=== PATIENT | female | born 1980 | race Caucasian/White ===

== ENCOUNTER 2019-01-19 06:47 | Day surgery (SDC) | payer OTHER ==
[~2019-01-19 06:47] MED LIST: Buffered Lidocaine 1% SYRIN* 1 ML/SYRINGE INTRADERM ONE; Dexamethasone IV* 4 MG/ML 1 ML (4 MG) IV SLOW PU ONE; Famotidine IV* 10 MG/ML 2 ML (20 mg) IV ONE; Lactated Ringers 1000 ML Bag* 1,000 ML IV SCH
[2019-01-19] MEDS ORDERED: Bupivacaine 0.25% SDV* 30 ML ONE (07:20)
[2019-01-19] MEDS ORDERED: Naloxone* 0.4 MG/ML 1 ML VIAL IV PRN (07:25)
[2019-01-19] MEDS ORDERED: HYDROcodone/ACETAMIN 5-325 MG* 1 TAB PO PRN (07:25)
[2019-01-19] MEDS ORDERED: DiMENhydriNATE IV* 50 MG/ML VIAL IV PUSH PRN (07:25)
[2019-01-19] MEDS ORDERED: oxyCODONE/Acetamin 5/325 MG* TAB PO PRN (07:25)
[2019-01-19] MEDS ORDERED: fentaNYL* 50 MCG/ML 2 ML VIAL (100 MCG VIAL) IV PRN (07:25)
[2019-01-19] MEDS ORDERED: Ketorolac INJ* 30 MG/ML 1 ML VIAL IV PRN (07:25)
[2019-01-19] MEDS ORDERED: Dexamethasone IV* 4 MG/ML 1 ML (4 MG) ONE (07:29)
[2019-01-19] MEDS ORDERED: Famotidine IV* 10 MG/ML 2 ML (20 mg) ONE (07:29)
[2019-01-19] MEDS ORDERED: Propofol* 10 MG/ML 20 ML BTL ONE (08:25)
[2019-01-19] MEDS ORDERED: Lidocaine 2% PF * 5 ML VIAL ONE (08:25)
[2019-01-19] MEDS ORDERED: fentaNYL* 50 MCG/ML 2 ML VIAL (100 MCG VIAL) ONE (08:25)
[2019-01-19] MEDS ORDERED: Midazolam* 1 MG/ML 2 ML VIAL (2 MG) ONE (08:25)
[2019-01-19] MEDS ORDERED: Ondansetron INJ* 2 MG/ML VIAL ONE (09:01)
[2019-01-19] MEDS ORDERED: Ketorolac INJ* 30 MG/ML 1 ML VIAL ONE (10:23)
[2019-01-19 11:01] VITALS: BP 114/69
--- NOTE | 2019-01-19 19:58 | OP ---
DATE OF OPERATION: 01/19/19 - [facility] DATE OF : 82 SURGEON: Rizwan Stone MD SEWING MACHINE BOBBIN WINDER: REDD Talbert ANESTHESIOLOGIST: Dr. Acuna. ANESTHESIA: General. PRE-OP DIAGNOSES: 1. Right carpal tunnel syndrome. 2. Right De Quervain's tendonitis. POST-OP DIAGNOSES: 1. Right carpal tunnel syndrome. 2. Right De Quervain's tendonitis. OPERATIVE PROCEDURE: 1. Right endoscopic carpal tunnel release. 2. Right De Quervain's release. INDICATIONS: Ms. Palencia has pretty significant De Quervain's and carpal tunnel syndrome. We had talked about treatment options, she had wanted to proceed with surgery. ESTIMATED BLOOD LOSS: 2 mL. COMPLICATIONS: None. FINDINGS: See above and below. DESCRIPTION OF PROCEDURE: Slime was seen in the preoperative holding area. The correct site, side, and procedure were identified. We came back to the operating room, the arm was prepped and draped in the usual fashion and a time- out was performed. The arm was exsanguinated with the Esmarch and the tourniquet was inflated to 225 mmHg. I went ahead and made a 1 cm incision just ulnar to the palmaris longus tendon and just proximal to the wrist flexion crease. The distal antebrachial fascia was split bluntly with the tenotomy scissors. The 2-prong skin hook was placed underneath the fascia. The synovial stripper, the dilators, and the Q-tip were used to dilate and curette and dry out the carpal tunnel. The microendoscopic system was used to release the transverse carpal ligament on its ulnar aspect from distal to proximal. The distal antebrachial fascia was released proximally with the tenotomy scissors. Once I had confirmed the release, everything was looking good. The wound was irrigated out and the skin was closed with 4-0 Prolene suture and Steri-Strips. I then made a 2-cm transverse incision just proximal to the radial styloid. Dissection was carried down and full-thickness flaps were bluntly raised off the tendon sheath. The Ragnell retractors were placed. The 15 blade was used to release the sheath. Just off the dorsal aspect, there was a large accessory compartment that was released first and then the septum was excised to release the adjacent compartment. Once I had fully released the tendons proximally and distally and the septum was excised, I did strip off some tenosynovitis as well. The wound was irrigated out, skin was closed with 4-0 Monocryl suture and Steri- Strip. 0.25% Marcaine was infiltrated. Soft dressing was applied and she was taken to the recovery room in stable condition. [id number]/[facility] #: [id number] RON
== END 2019-01-19 11:16 | disposition home or self-care (01) ==
LOC: OREAST 06:47
PROVIDERS: ATTEND Orthopaedic Surgery Hand Surgery
DX: G56.01 Carpal tunnel syndrome, right upper limb (principal); M65.4 Radial styloid tenosynovitis [de Quervain]; Z87.891 Personal history of nicotine dependence; F31.89 Other bipolar disorder; F42.9 Obsessive-compulsive disorder, unspecified
CPT/HCPCS: 81025; J1100; J1885; J2250; J2405; J2704; J3010; J3490

== ENCOUNTER 2020-05-09 16:00 | Inpatient (IN) ==
[2020-05-09] MEDS ORDERED: Buffered Lidocaine 1% SYRIN 1 ml INTRADERM ONE (16:34)
[2020-05-09] MEDS ORDERED: Penicillin G Potassium IV 5,000,000 UNITS in NS 0.9% 100 ml BAG 100 ML IVPB ONE (16:34)
[2020-05-09] MEDS ORDERED: Lactated Ringers 1000 ml BAG 1,000 ML IV ONE ×2 (16:34→23:50)
[2020-05-09] MEDS ORDERED: Promethazine INJ(RESTRICTED) 25 MG/ML 1 ml VIAL IV ONE (16:34)
[2020-05-09] MEDS ORDERED: Morphine 10 MG/ML VIAL (1 ml) IM ONE (16:38)
[2020-05-09] MEDS ORDERED: Promethazine INJ(RESTRICTED) 25 MG/ML 1 ml VIAL IM ONE (16:40)
[2020-05-09] MEDS ORDERED: Lactated Ringers 1000 ml BAG 1,000 ML IV SCH ×2 (17:00→23:45)
[2020-05-09 17:41] LABS: Urine Benzodiazepine Screen None Detected (None Detect); Urine Cannabinoids Screen None Detected (None Detect); Urine Opiates Screen None Detected (None Detect)
[2020-05-09 22:26] LABS: ABS Basophils 0.1 10^3/ul (0-0.2); ABS Eosinophils 0.1 10^3/ul (0-0.6); ABS Lymphocytes 1.8 10^3/ul (1.0-4.8); ABS Monocytes 0.8 10^3/ul (0-0.8); ABS Neutrophils 8.8 10^3/ul (1.5-7.7); Hematocrit 36 % (35-47); Hemoglobin 12.3 g/dL (12.0-16.0); Lymphocyte % 15.9 %; Mean Corpuscular HGB Conc 34 g/dL (31-36); Mean Corpuscular Hemoglobin 32 pg (27-31); Mean Corpuscular Volume 93 fL (80-97); Platelet Count 228 10^3/uL (150-450); Red Blood Count 3.88 10^6 /uL (3.70-4.87); Red Cell Distribution Width 14 % (10-15); White Blood Count 11.6 10^3/uL (3.5-10.8)
[2020-05-09] MEDS ORDERED: OBEPIDURAL 250 ML EPIDURAL ONE (22:59)
[2020-05-09] MEDS ORDERED: Oxytocin in LR 20 UNITS/1,000 ML BAG IVPB ONE (23:07)
[2020-05-09] MEDS ORDERED: OBEPIDURAL 250 ML EPIDURAL SCH (23:45)
[2020-05-09] MEDS ORDERED: Phenylephrine 40 mcg/mL 10mL (400mcg) SYRINGE IV PUSH PRN (23:50)
[2020-05-09] MEDS ORDERED: Sodium Citrate/Citric Acid LIQ 15 ML UDC PO PRN (23:50)
[2020-05-09] MEDS: Phenylephrine 40 mcg/mL 10mL (400mcg) SYRINGE IV PUSH PRN (23:58)
[2020-05-10] MEDS: Phenylephrine 40 mcg/mL 10mL (400mcg) SYRINGE IV PUSH PRN (00:02)
[2020-05-10] MEDS ORDERED: Dibucaine 1% OINT 28.35 GM TUBE PR PRN (02:01)
[2020-05-10] MEDS ORDERED: Witch Hazel PAD JAR TOPICAL PRN (02:01)
[2020-05-10] MEDS ORDERED: Oxytocin in LR 20 UNITS/1,000 ML BAG IVPB SCH (03:00)
[2020-05-10] MEDS ORDERED: Penicillin G Potassium IV 3,000,000 UNITS in NS 0.9% 100 ml BAG 100 ML IVPB SCH (03:00)
[2020-05-10] MEDS ORDERED: Lactated Ringers 1000 ml BAG 1,000 ML IV SCH (03:00)
[2020-05-11 06:58] LABS: ABS Basophils 0.1 10^3/ul (0-0.2); ABS Eosinophils 0.2 10^3/ul (0-0.6); ABS Monocytes 0.7 10^3/ul (0-0.8); Eosinophil % 1.6 %; Hematocrit 33 % (35-47); Hemoglobin 11.2 g/dL (12.0-16.0); Lymphocyte % 18.1 %; Mean Corpuscular HGB Conc 34 g/dL (31-36); Mean Corpuscular Hemoglobin 32 pg (27-31); Mean Corpuscular Volume 95 fL (80-97); Platelet Count 187 10^3/uL (150-450); Red Blood Count 3.48 10^6 /uL (3.70-4.87); Red Cell Distribution Width 14 % (10-15); White Blood Count 10.9 10^3/uL (3.5-10.8)
[2020-05-12 08:01] VITALS: BP 128/68
== END 2020-05-12 11:15 | disposition home or self-care (01) | DRG 807 ==
LOC: MCHOBOUT 16:00 → MCHOB 16:33
PROVIDERS: ADMIT Midwife; ATTEND Midwife